=== PATIENT | female | born 1985 | race Caucasian/White ===

== ENCOUNTER 2017-02-15 10:17 | Inpatient (IN) | payer OTHER ==
[2017-02-15] MEDS ORDERED: Acetaminophen TAB* 325 MG PO PRN (12:41)
[2017-02-15] MEDS ORDERED: Glycerin ADULT SUPP PR PRN (12:41)
[2017-02-15] MEDS ORDERED: oxyCODONE/Acetamin 5/325 MG* TAB PO PRN (12:41)
[2017-02-15] MEDS: Ibuprofen TAB* 600 MG PO PRN (15:11)
[2017-02-15] MEDS: Witch Hazel PAD* JAR TOPICAL PRN (15:11)
[2017-02-15] MEDS: Dibucaine 1% 28.35 GM TUBE PR PRN (15:12)
[2017-02-15] MEDS: Docusate CAP* 100 MG PO SCH ×2 (15:22→20:48)
--- NOTE | 2017-02-15 17:22 | PTEDU ---
Patient Name: MARY PAPPAS MARY PAPPAS selected video: BBOB: Bonding Through Massage to view on 02/15/2017 at 5:22:30 PM from [id number]
[2017-02-15] MEDS ORDERED: Simethicone CHEW TAB* 80 MG PO SCH (17:30)
[2017-02-16 06:53] LABS: Hematocrit 31 % (35-47); Hemoglobin 10.1 g/dl (12.0-16.0); Mean Corpuscular HGB Conc 33 g/dl (31-36); Mean Corpuscular Hemoglobin 26 pg (27-31); Mean Corpuscular Volume 78 fL (80-97); Mean Platelet Volume 8 um3 (7.4-10.4); Red Blood Count 3.95 10^6/ul (4.0-5.4); Red Cell Distribution Width 15 % (10.5-15); White Blood Count 11.4 10^3/ul (3.5-10.8)
[2017-02-16] MEDS: Ibuprofen TAB* 600 MG PO PRN (06:58)
--- NOTE | 2017-02-16 07:41 | PTEDU ---
Patient Name: MARY PAPPAS ELYSE MARY selected video: Never Ever Shake a Baby to view on 02/16/2017 at 7:40:17 AM from [facility] – [place] [id number]
[2017-02-16] MEDS: Docusate CAP* 100 MG PO SCH (07:48)
[2017-02-16] MEDS ORDERED: Ferrous Gluconate TAB* 324 MG TAB PO SCH (09:00)
[2017-02-16 12:14] VITALS: BP 110/65
[2017-02-16] MEDS: Dibucaine 1% 28.35 GM TUBE PR PRN (12:44)
[2017-02-16] MEDS: Witch Hazel PAD* JAR TOPICAL PRN (12:44)
--- NOTE | 2017-02-16 13:50 | PTEDU ---
Patient Name: MARY PAPPAS ELYSE MARY selected video: Never Ever Shake a Baby to view on 02/16/2017 at 1:49:27 PM from [facility] [place] [id number]
--- NOTE | 2017-02-16 16:28 | OP ---
CC: [facility]* DATE OF OPERATION: 02/15/17 - ROOM #[id number] DATE OF : 87 SURGEON: Nicola Bates MD ANESTHESIA: 10 cc of 1% lidocaine local anesthetic. PRE-OP DIAGNOSIS: at 41 weeks, post spontaneous vaginal delivery with a vaginal laceration. POST-OP DIAGNOSIS: at 41 weeks, post spontaneous vaginal delivery with a vaginal laceration, and a third-degree vaginal perineal laceration. OPERATIVE PROCEDURE: Repair of third-degree laceration. ESTIMATED BLOOD LOSS: None. SPECIMENS: No specimen sent to pathology. FLUIDS: No fluids given. URINE OUTPUT: No urine output. FINDINGS: The patient after a spontaneous vaginal delivery was noted to have a midline vaginal third-degree laceration extending through the perineum up to 1 cm above the rectum. Rectal exam revealed no laceration into the rectum or the rectal mucosa. The perineal muscles were noted to be lacerated. DESCRIPTION OF PROCEDURE: At this point, the edges of the laceration were infiltrated with 1% lidocaine. A total of 10 cc were used. I then proceeded to close the laceration in the usual fashion with 3-0 Polysorb sutures with good approximation of the connective tissue, the perineal muscles, and the vaginal mucosa. After the procedure, the laceration was noted to be hemostatic , was then cleaned. All the instruments were then removed from the patient's vagina. Sponge, needle counts, and instrument counts were correct x2 and after good care post vaginal delivery, she was then transferred to the unit in stable condition. [id number]/[id number] #: [id number] MTDD
== END 2017-02-16 15:30 | disposition home or self-care (01) | DRG 775 ==
LOC: MCHOBOUT 10:17 → MCHOB 10:22
PROVIDERS: ADMIT Midwife; ATTEND Midwife
PROC: 10E0XZZ Delivery of Products of Conception, External Approach (ICD-10-PCS; principal; 2017-02-15)
PROC: 0DQR0ZZ Repair Anal Sphincter, Open Approach (ICD-10-PCS; 2017-02-15)
DX: O48.0 Post-term pregnancy (principal); O70.20 Third degree perineal laceration during delivery, unspecified; Z37.0 Single live birth; Z3A.41 41 weeks gestation of pregnancy
CPT/HCPCS: 36415; 85025; A9270-GY

== ENCOUNTER 2020-01-14 00:46 | Inpatient (IN) ==
[2020-01-14] MEDS ORDERED: Lactated Ringers 1000 ml BAG 1,000 ML IV ONE (01:25)
[2020-01-14] MEDS ORDERED: Lactated Ringers 1000 ml BAG 1,000 ML IV SCH (02:00)
[2020-01-14 03:22] LABS: Urine Benzodiazepine Screen None Detected (None Detect); Urine Opiates Screen None Detected (None Detect)
[2020-01-14] MEDS ORDERED: Witch Hazel PAD JAR TOPICAL PRN (03:29)
[2020-01-14] MEDS ORDERED: Lidocaine 1% VIAL 10 MG/ML VIAL ONE (06:00)
[2020-01-14] MEDS ORDERED: Oxytocin 10 UNITS/ML 1 ML VIAL ONE (06:30)
[2020-01-14] MEDS ORDERED: Oxytocin 10 UNITS/ML 1 ML VIAL IM ONE (06:36)
[2020-01-14] MEDS ORDERED: Methylergonovine 0.2 mg AMPULE 1 ml AMP IM PRN (06:38)
[2020-01-14] MEDS ORDERED: Oxytocin in LR 20 UNITS/1,000 ML BAG IVPB ONE (06:45)
[2020-01-14] MEDS: Oxytocin in LR 20 UNITS/1,000 ML BAG IVPB SCH ×2 (06:53→09:52)
[2020-01-14 07:01] LABS: ABS Monocytes 0.5 10^3/ul (0-0.8); Eosinophil % 0.1 %; Hematocrit 33 % (35-47); Hemoglobin 10.9 g/dL (12.0-16.0); Lymphocyte % 8.1 %; Mean Corpuscular HGB Conc 33 g/dL (31-36); Mean Corpuscular Hemoglobin 25 pg (27-31); Mean Corpuscular Volume 75 fL (80-97); Mean Platelet Volume 8.2 fL (7.4-10.4); Platelet Count 223 10^3/uL (150-450); Red Blood Count 4.42 10^6 /uL (3.70-4.87); Red Cell Distribution Width 15 % (10-15); White Blood Count 12.9 10^3/uL (3.5-10.8)
[2020-01-14] MEDS: Dibucaine 1% OINT 28.35 GM TUBE PR PRN (09:52)
[2020-01-15 08:09] LABS: ABS Eosinophils 0.1 10^3/ul (0-0.6); ABS Lymphocytes 1.7 10^3/ul (1.0-4.8); ABS Monocytes 0.5 10^3/ul (0-0.8); Eosinophil % 0.8 %; Hematocrit 26 % (35-47); Hemoglobin 8.7 g/dL (12.0-16.0); Lymphocyte % 20.2 %; Mean Corpuscular HGB Conc 34 g/dL (31-36); Mean Corpuscular Hemoglobin 25 pg (27-31); Mean Corpuscular Volume 74 fL (80-97); Mean Platelet Volume 7.6 fL (7.4-10.4); Nucleated Red Blood Cells % 0.1; Platelet Count 186 10^3/uL (150-450); Red Cell Distribution Width 15 % (10-15); White Blood Count 8.6 10^3/uL (3.5-10.8)
[2020-01-15 09:33] VITALS: BP 111/61
[2020-01-15] MEDS: Dibucaine 1% OINT 28.35 GM TUBE PR PRN (11:09)
== END 2020-01-15 11:28 | disposition home or self-care (01) | DRG 560 ==
LOC: MCHOBOUT 00:46 → MCHOB 01:31
PROVIDERS: ADMIT Advanced Practice Midwife; ATTEND Advanced Practice Midwife